=== PATIENT | male | born 1985 | race Caucasian/White ===

== ENCOUNTER 2024-08-16 08:11 | Emergency (ER) | payer OTHER, SELFPAY ==
[2024-08-16 08:24] VITALS: BP 129/77; PULSE 76; RESP 16; TEMP 36.5; O2SAT 99
[2024-08-16 08:43] LABS: EDSTREPNEGPOS1 Positive (Negative)
--- NOTE | 2024-08-16 09:44 | ED_ITS ---
HPI - General Adult General Chief complaint: Upper Respiratory Infection Stated complaint: Cough Source: patient Mode of arrival: ambulatory Limitations: no limitations History of Present Illness HPI narrative: Patient presents for evaluation of a cough for the last 5 days. Cough is productive of yellow sputum. He has a mild sore throat. He denies shortness of breath. No fever, chills, nausea, vomiting, diarrhea. His son had similar symptoms in tested positive for strep. He has not taken any medications to assist with his symptoms. He smokes 1 ppd. Related Data Allergies Allergy/AdvReac Type Severity Reaction Status Date / Time No Known Allergies Allergy Verified 08/16/24 08:30 Review of Systems Review of Systems: CONSTITUTIONAL: Denies fever, chills, or sweats. EYES: Denies visual changes, redness, or discharge. ENT: Reports sore throat. Denies rhinorrhea, congestion, or otalgia. CARDIOVASCULAR: Denies chest pain, palpitations, or edema. RESPIRATORY: Reports cough. Denies shortness of breath. GASTROINTESTINAL: Denies abdominal pain, nausea, vomiting, or diarrhea. GENITOURINARY: Denies dysuria or hematuria. SKIN: Denies rash or itching. MUSCULOSKELETAL: Denies back pain, joint pain, or myalgia. NEUROLOGIC: Denies headache, numbness, dizziness, or weakness. PSYCHIATRIC: Denies anxiety or depression. PMFSH Past Medical History Medical History No pertinent past medical history Surgical History Surgical History No pertinent past surgical history Family History Family History Mother Family history non-contributory Social History Social History Smoking packs per day: 1 Smoking cigarettes per day: 20.0 Smoking status: Current every day smoker Substance use: never Living arrangements: with family Gender identity (if verbalized by the patient): Male Sexual Orientation (if Verbalized by the Patient): Straight or Heterosexual Spiritual care concerns: No Exam Narrative: GENERAL: Well-appearing, well-nourished, and in no acute distress. HEAD: Normocephalic, atraumatic. EYES: PERRLA and EOMI. ENT: Nares clear, no rhinorrhea or epistaxis. Mucous membranes moist. Posterior pharyngeal erythema without exudate. Uvula is midline.. Bilateral TMs pearly winslow nonbulging NECK: Supple. No adenopathy or masses. No carotid bruits or JVD CHEST: Clear to auscultation. No respiratory distress. No wheezes rales or rhonchi HEART: Regular rate and rhythm. No murmur heard. Normal peripheral pulses. ABDOMEN: Soft, nontender, nondistended, normal active bowel sounds. EXTREMITIES: Normal range of motion. No edema. SKIN: Warm, dry, no rash. NEURO: No focal deficits. Alert and oriented x3. PSYCH: Normal mood and affect. Course Course Emergency Course: This is a 38-year-old male who presented for evaluation of cough and sore throat after recent strep exposure. Rapid strep positive. Will treat with amoxicillin. Increase hydration. [id number] agents for symptom management. Follow up with primary provider. Go to the ER for worsening symptoms. Patient in agreement with plan of care. Level of Care: Express Care Visit Vital Signs Vital signs: Vital Signs Temperature 36.5 C 08/16/24 08:24 Pulse Rate 76 08/16/24 08:24 Respiratory Rate 16 08/16/24 08:24 Blood Pressure 129/77 08/16/24 08:24 Pulse Oximetry 99 08/16/24 08:24 Temperature 36.5 C 08/16/24 08:24 Pulse Rate 76 08/16/24 08:24 Respiratory Rate 16 08/16/24 08:24 Blood Pressure 129/77 08/16/24 08:24 Pulse Oximetry 99 08/16/24 08:24 Medical Decision Making Vital Signs Vital Signs: Vital Signs Temperature 36.5 C 08/16/24 08:24 Pulse Rate 76 08/16/24 08:24 Respiratory Rate 16 08/16/24 08:24 Blood Pressure 129/77 08/16/24 08:24 Pulse Oximetry 99 08/16/24 08:24 Temperature 36.5 C 08/16/24 08:24 Pulse Rate 76 08/16/24 08:24 Respiratory Rate 16 08/16/24 08:24 Blood Pressure 129/77 08/16/24 08:24 Pulse Oximetry 99 08/16/24 08:24 Lab Data Labs: Lab Results 08/16/24 Range/Units 08:41 POC Grp A Strep Screen Positive (Negative) Discharge Plan Discharge Clinical Impression: Acute streptococcal pharyngitis Patient Disposition: Home, Self-Care Condition: Stable Instructions: Antibiotic Form, Strep Throat (ED) Patient Language: Monegasque Prescriptions: New amoxicillin 500 mg tablet 500 mg PO Q12H Qty: 20 0RF Follow-up/Referrals: Avery Akhtar MD [Physician] - Time of Disposition: 08:42
== END 2024-08-16 08:42 | disposition home or self-care (01) ==
PROVIDERS: Emergency Provider Nurse Practitioner
DX: J02.0 Streptococcal pharyngitis (principal); F17.210 Nicotine dependence, cigarettes, uncomplicated
CPT/HCPCS: 87880; 99213; G0463

== ENCOUNTER 2024-08-26 09:01 | Emergency (ER) | payer OTHER, SELFPAY ==
[2024-08-26 09:07] VITALS: BP 145/77; PULSE 97; RESP 24; TEMP 37.1; O2SAT 98
--- NOTE | 2024-08-26 09:42 | ED_ITS ---
HPI - URI/Sore Throat General Chief Complaint: Upper Respiratory Infection Stated Complaint: trouble catching breath History of Present Illness HPI Narrative: patient is a 38-year-old male, returns to [facility] with complaints of persistent cough, wheezing and some shortness of breath. He was evaluated and treated 10 days ago for URI symptoms and was positive strep during that visit. He was treated with amoxicillin and has 1 dose remaining this evening. He states his throat discomfort has resolved however he continues to have a productive cough. He denies any additional associated symptoms or modifying factors. Related Data Allergies Allergy/AdvReac Type Severity Reaction Status Date / Time No Known Allergies Allergy Verified 08/16/24 08:30 Review of Systems ENT: Comments: Refer to [facility] Respiratory: Comments: refer to [facility] Past Medical History Medical History No pertinent past medical history Surgical History Surgical History No pertinent past surgical history Family History Family History Mother Family history non-contributory Social History Social History Smoking packs per day: 1 Smoking cigarettes per day: 20.0 Smoking status: Current every day smoker Substance use: never Living arrangements: with family Gender identity (if verbalized by the patient): Male Sexual Orientation (if Verbalized by the Patient): Straight or Heterosexual Spiritual care concerns: No Exam Const: General: healthy appearing, no acute distress and alert Nutritional Appearance: well nourished Orientation/consciousness: patient oriented x3 Limitations: no limitations HENMT: Head: normal to inspection Ears: external ears normal Face/Nose/Sinus: Normal external nose present Mouth: Yes Normal oral and palatal mucosa present and Yes lip normal Throat: posterior oropharynx normal and uvula midline Eyes: Conjunctivae: conjunctivae normal EOM: EOMs intact bilaterally Neck: Neck: normal visual inspection, no lymphadenopathy and no meningeal signs Resp: Effort & Inspection: normal respiratory effort Auscultation: clear to auscultation bilaterally Other: end-expiratory wheeze noted while coughing only, spasmodic cough is noted throughout examination, no rales or rhonchi appreciated, no increased work of breathing Cardio: Rate: regular rate Rhythm: regular rhythm Skin: General skin exam: normal color Rashes: no rashes Wounds: no wounds Neuro: General: patient oriented x3, moves all extremities, no meningeal signs, no focal motor deficits and CN's II-XI intact bilaterally Speech: normal speech Extrem: General: normal to inspection Course Course Emergency Course: plan to treat empirically for community-acquired pneumonia /mycoplasma pneumoniae as recommendation the CDC based on current epidemic. Patient will also receive a short steroid course and an inhaler. [id number] Tylenol may be continued for discomfort. Follow up with PCP in 3-5 days if symptoms are not resolving, sooner if condition worsens, ER if condition become severe, shortness of breath increases her with any concerns his condition is becoming emergent Level of Care: Express Care Visit ([id number]) Vital Signs Vital signs: Vital Signs Temperature 37.1 C 08/26/24 09:07 Pulse Rate 97 08/26/24 09:07 Respiratory Rate 24 H 08/26/24 09:07 Blood Pressure 145/77 H 08/26/24 09:07 Pulse Oximetry 98 08/26/24 09:07 Oxygen Delivery Room Air 08/26/24 09:07 Temperature 37.1 C 08/26/24 09:07 Pulse Rate 97 08/26/24 09:07 Respiratory Rate 24 H 08/26/24 09:07 Blood Pressure 145/77 H 08/26/24 09:07 Pulse Oximetry 98 08/26/24 09:07 Oxygen Delivery Room Air 08/26/24 09:07 MDM - URI/Sore Throat MDM Narrative Medical decision making narrative: Zithromax, prednisone, albuterol Differential Diagnosis Differential diagnosis: Likely upper respiratory infection, otitis media, sinusitis, viral infection and bronchitis Discharge Plan Discharge Clinical Impression: Bronchitis Patient Disposition: Home, Self-Care Condition: Stable Instructions: Antibiotic Form, Community Acquired Pneumonia (ED) Additional Instructions: START AND COMPLETE ORAL ANTIBIOTICS AND ORAL STEROIDS PRESCRIBED. FOLLOW-UP WITH YOUR PRIMARY CARE PROVIDER WITHOUT FAIL IN 3-5 DAYS IF HER SYMPTOMS ARE NOT IMPROVING. MAY CONTINUE [id number], DELSYM AND TYLENOL DIRECTED. INHALER FOR RESCUE DIRECTED. PROCEED TO THE ER IF YOU HAVE ANY CONCERNS OR CONDITION IS WORSENING Prescriptions: New prednisone 20 mg tablet 40 mg PO DAILY 5 Days Qty: 10 0RF albuterol sulfate 90 mcg/actuation HFA aerosol inhaler 1 inh inhalation QID PRN (Reason: shortness of breath or wheezing) Qty: 8.5 0RF azithromycin [Zithromax] 500 mg tablet 500 mg PO DAILY 5 Days Qty: 5 0RF No Action amoxicillin 500 mg tablet 500 mg PO Q12H Qty: 20 0RF Follow-up/Referrals: PHYSICIAN NOT ON STAFF,NONSTAFF [Primary Care Provider] - Stand Alone Forms: Work/School Release IP Time of Disposition: 09:48
== END 2024-08-26 09:55 | disposition home or self-care (01) ==
PROVIDERS: Emergency Provider Nurse Practitioner Family
DX: J40 Bronchitis, not specified as acute or chronic (principal); F17.210 Nicotine dependence, cigarettes, uncomplicated
CPT/HCPCS: 99213; G0463